=== PATIENT | male | born 1990 | race Caucasian/White ===

== ENCOUNTER 2019-04-08 19:41 | Inpatient (IN) | payer BC, OTHER ==
[2019-04-08] MEDS ORDERED: Sodium Chloride 0.9% 10 ML Syringe FLUSH PRN ×2 (20:03→22:44)
[2019-04-08] MEDS ORDERED: Sodium Chloride 0.9% 1,000 ML IV ONE (20:03)
[2019-04-08] MEDS ORDERED: Sodium Chloride 0.9% 2.5 ML Syringe FLUSH PRN ×2 (20:03→22:44)
--- NOTE | 2019-04-08 20:30 | EDM.PDOC ---
ED HPI GENERAL MEDICAL PROBLEM - General Chief Complaint: Abdominal Pain Stated Complaint: PAIN IN APENDIX Time Seen by Provider: 04/08/19 20:06 Source of Information: Reports: Patient History Limitations: Reports: No Limitations - History of Present Illness INITIAL COMMENTS - FREE TEXT/NARRATIVE: HISTORY AND PHYSICAL: History of present illness: Patient is a 28-year-old male presents to the ED with complaints of right lower abdominal pain. Patient states that the pain began this afternoon around 2 PM. He states he has had chills. He has had some nausea but denies any vomiting. He states that he has not had any diarrhea but he did have a bloody bowel movement this morning with bright red blood. He states this is not new to him and he always has blood in his stool. Review of systems: As per history of present illness and below otherwise all systems reviewed and negative. Past medical history: As per history of present illness and as reviewed below otherwise noncontributory. Surgical history: As per history of present illness and as reviewed below otherwise noncontributory. Social history: No reported history of drug or alcohol abuse. Family history: As per history of present illness and as reviewed below otherwise noncontributory. Physical exam: General: Patient sitting comfortably in no acute distress and nontoxic appearing HEENT: Atraumatic, normocephalic, pupils reactive, negative for conjunctival pallor or scleral icterus, mucous membranes moist, throat clear, neck supple, nontender, trachea midline. No meningeal signs. Lungs: Clear to auscultation, breath sounds equal bilaterally, chest nontender. Heart: S1S2, regular, negative for clicks, rubs, or overt murmur. Abdomen: Right lower quadrant tenderness to palpation nondistended. Negative for masses or hepatosplenomegaly. Negative for costovertebral tenderness. No rigidity, rebound, guarding. Pelvis: Stable nontender. Genitourinary: Deferred. Rectal: Deferred. Extremities: Atraumatic, negative for cords or calf pain. Neurovascular unremarkable. Neuro: Awake, alert, oriented. Cranial nerves II through XII unremarkable. Cerebellum unremarkable. Motor and sensory unremarkable throughout. Exam nonfocal. Notes: Discussed with Dr. Ramírez, she will evaluate patient in the ED. Diagnostics: CBC, CMP, CT abdomen pelvis with contrast, UA Therapeutics: 1L NS IV Declined pain medication Prescriptions: Impression: Acute appendicitis Plan: Patient admitted to Dr. Ramírez for appendectomy in the morning. Definitive disposition and diagnosis as appropriate pending reevaluation and review of above. RLQ Pain Score (Numeric/FACES): 7 - Related Data Allergies Allergy/AdvReac Type Severity Reaction Status Date / Time ciprofloxacin [From Cipro] Allergy Vomiting Verified 12/06/13 19:01 ciprofloxacin HCl Allergy Vomiting Verified 12/06/13 19:01 [From Cipro] pertussis vaccine,adsorbed Allergy Seizure Verified 12/06/13 19:01 [Pertussis Vaccine,Adsorbed] pertussis vaccine,fluid Allergy Seizure Verified 12/06/13 19:01 [Pertussis Vaccine,Fluid] Home Meds: Home Meds Buprenorphine HCl/Naloxone HCl [Suboxone 4 mg-1 mg Sl Film] 8 mg 04/08/19 [ History] Past Medical History - Past Health History Medical/Surgical History: Denies Medical/Surgical History - Infectious Disease History Infectious Disease History: Reports: Chicken Pox - Past Surgical History GI Surgical History: Reports: Hernia, Abdominal Social & Family History - Family History Family Medical History: Noncontributory - Tobacco Use Smoking Status *Q: Current Every Day Smoker Years of Tobacco use: 1 Packs/Tins Daily: 1 - Recreational Drug Use Recreational Drug Use: No ED ROS GENERAL - Review of Systems Review Of Systems: Comprehensive ROS is negative, except as noted in HPI. ED EXAM, GI/ABD - Physical Exam Exam: See Below (See dictation) Course - Vital Signs Last Recorded V/S: Last Vital Signs Temp 98.3 F 04/08/19 21:15 Pulse 94 04/08/19 22:22 Resp 18 04/08/19 22:22 BP 113/70 04/08/19 22:22 Pulse Ox 95 04/08/19 22:22 - Orders/Labs/Meds Orders: Active Orders 24 hr Category Date Time Status Sodium Chloride 0.9% [Saline Flush] Med 04/08/19 20:03 Active 10 ml FLUSH ASDIRECTED PRN Sodium Chloride 0.9% [Saline Flush] Med 04/08/19 20:03 Active 2.5 ml FLUSH ASDIRECTED PRN Saline Lock Insert [OM.PC] Stat Oth 04/08/19 20:03 Ordered Medication Orders Sodium Chloride (Saline Flush) 10 ml FLUSH ASDIRECTED PRN PRN Reason: Keep Vein Open Sodium Chloride (Saline Flush) 2.5 ml FLUSH ASDIRECTED PRN PRN Reason: Keep Vein Open Labs: Laboratory Tests 04/08/19 04/08/19 04/08/19 Range/Units 20:00 20:00 20:05 WBC 21.41 H (4.0-11.0) K/uL RBC 5.15 (4.50-5.90) M/uL Hgb 15.0 (13.0-17.0) g/dL Hct 43.2 (38.0-50.0) % MCV 83.9 (80.0-98.0) fL MCH 29.1 (27.0-32.0) pg MCHC 34.7 (31.0-37.0) g/dL RDW Std Deviation 38.5 (28.0-62.0) fl RDW Coeff of Dayanna 13 (11.0-15.0) % Plt Count 307 (150-400) K/uL MPV 9.60 (7.40-12.00) fL Neut % (Auto) 72.6 (48.0-80.0) % Lymph % (Auto) 16.8 (16.0-40.0) % [place] % (Auto) 9.8 (0.0-15.0) % Eos % (Auto) 0.6 (0.0-7.0) % Baso % (Auto) 0.2 (0.0-1.5) % Neut # (Auto) 15.5 H (1.4-5.7) K/uL Lymph # (Auto) 3.6 H (0.6-2.4) K/uL [place] # (Auto) 2.1 H (0.0-0.8) K/uL Eos # (Auto) 0.1 (0.0-0.7) K/uL Baso # (Auto) 0.1 (0.0-0.1) K/uL Nucleated RBC % 0.0 /100WBC Nucleated RBCs # 0 K/uL Sodium 140 (136-148) mmol/L Potassium 4.3 (3.5-5.1) mmol/L Chloride 103 (98-107) mmol/L Carbon Dioxide 30.4 (21.0-32.0) mmol/L BUN 15 (7.0-18.0) mg/dL Creatinine 1.0 (0.8-1.3) mg/dL Est Cr Clr Drug Dosing 118.18 mL/min Estimated GFR (MDRD) > 60.0 ml/min Glucose 102 (74-106) mg/dL Calcium 9.0 (8.5-10.1) mg/dL Total Bilirubin 0.5 (0.2-1.0) mg/dL AST 33 (15-37) IU/L ALT 79 H (14-63) IU/L Alkaline Phosphatase 90 (46-116) U/L Total Protein 7.9 (6.4-8.2) g/dL Albumin 4.2 (3.4-5.0) g/dL Globulin 3.7 (2.6-4.0) g/dL Albumin/Globulin Ratio 1.1 (0.9-1.6) Urine Color YELLOW Urine Appearance HAZY Urine pH 6.5 (5.0-8.0) Ur Specific [place] 1.020 (1.001-1.035) Urine Protein NEGATIVE (NEGATIVE) mg/dL Urine Glucose (UA) NEGATIVE (NEGATIVE) mg/dL Urine Ketones NEGATIVE (NEGATIVE) mg/dL Urine Occult Blood LARGE H (NEGATIVE) Urine Nitrite NEGATIVE (NEGATIVE) Urine Bilirubin NEGATIVE (NEGATIVE) Urine Urobilinogen 2.0 H (<2.0) EU/dL Ur Leukocyte Esterase NEGATIVE (NEGATIVE) Urine RBC 8-14 (0-2/HPF) Urine WBC 0-2 (0-5/HPF) Ur Epithelial Cells RARE (NONE-FEW) Urine Bacteria RARE (NEGATIVE) Meds: Medications Generic Name Dose Route Start Last Admin Trade Name Isreal PRN Reason Stop Dose Admin Sodium Chloride 10 ml 04/08/19 20:03 Saline Flush FLUSH ASDIRECTED PRN Keep Vein Open Sodium Chloride 2.5 ml 04/08/19 20:03 Saline Flush FLUSH ASDIRECTED PRN Keep Vein Open Discontinued Medications Generic Name Dose Route Start Last Admin Trade Name Isreal PRN Reason Stop Dose Admin Sodium Chloride 1,000 mls @ 999 mls/hr 04/08/19 20:03 04/08/19 20:14 Normal Saline IV 04/08/19 21:03 999 mls/hr STAT ONE Administration Iopamidol 100 ml 04/08/19 21:04 04/08/19 21:05 Isovue-370 (76%) IVPUSH 04/08/19 21:05 100 ml ONETIME ONE Administration Departure - Departure Time of Disposition: 22:26 Disposition: Refer to Observation Condition: Good Clinical Impression: Acute appendicitis - Discharge Information Referrals: PCP,None [Primary Care Provider] - Forms: ED Department Discharge Sepsis Event Note - Evaluation Sepsis Screening Result: No Definite Risk - Focused Exam Vital Signs: Vital Signs Temp Pulse Resp BP Pulse Ox 04/08/19 22:22 94 18 113/70 95 04/08/19 21:15 98.3 F 94 18 121/72 96 04/08/19 19:45 98.7 F 123 H 16 114/74 95 Date Exam was Performed: 04/08/19 Time Exam was Performed: 22:25 - My Orders Last 24 Hours: My Active Orders 04/08/19 20:03 Sodium Chloride 0.9% [Saline Flush] 10 ml FLUSH ASDIRECTED PRN Sodium Chloride 0.9% [Saline Flush] 2.5 ml FLUSH ASDIRECTED PRN Saline Lock Insert [OM.PC] Stat - Assessment/Plan Last 24 Hours: My Active Orders 04/08/19 20:03 Sodium Chloride 0.9% [Saline Flush] 10 ml FLUSH ASDIRECTED PRN Sodium Chloride 0.9% [Saline Flush] 2.5 ml FLUSH ASDIRECTED PRN Saline Lock Insert [OM.PC] Stat
[2019-04-08 20:42] LABS: BLOOD UREA NITROGEN,BUN 15 mg/dL (7.0-18.0); CARBON DIOXIDE,CO2 30.4 mmol/L (21.0-32.0); CHLORIDE,CL 103 mmol/L (98-107); GLUCOSE RANDOM 102 mg/dL (74-106); POTASSIUM,K 4.3 mmol/L (3.5-5.1); SODIUM,NA 140 mmol/L (136-148)
[2019-04-08] MEDS ORDERED: Iopamidol 755 Mg/ML 100 ML Bottle IVPUSH ONE (21:04)
--- NOTE | 2019-04-08 21:16 | CT ---
INDICATION: Right lower quadrant pain. TECHNIQUE: Volumetric helical scanning of the abdomen and pelvis was performed with 100 cc of Isovue 370 contrast material IV. Coronal and sagittal reconstructions were obtained. COMPARISON: None. FINDINGS: The appendix measures 8 mm in diameter and is fluid filled. Stranding in the periappendiceal fat is noted as well as a small amount of periappendiceal fluid and small amount of fluid in the posterior pelvis. No free air is evident. The liver is normal in size, shape and attenuation. No bile duct dilation is evident. The spleen is within normal limits. The adrenal glands are unremarkable. The pancreas is within normal limits. The kidneys are unremarkable except for a small right renal parenchymal cyst. No lymphadenopathy is evident. The prostate is unremarkable. The lung bases are clear. The heart is normal in size. IMPRESSION: 1. Suspicious for early acute appendicitis. Though the appendix measures only 8 mm in diameter, it is fluid-filled and there is stranding in the periappendiceal fat as well as a small amount of periappendiceal fluid. 2. Small right renal cyst. Please note that all CT scans at this facility use dose modulation, iterative reconstruction, and/or weight-based dosing when appropriate to reduce radiation dose to as low as reasonably achievable. Dictated by Bryan Knight MD @ Apr 08 2019 9:09PM Signed by Dr. Bryan Knight @ Apr 08 2019 9:16PM
--- NOTE | 2019-04-08 22:40 | PCM.HP.2 ---
H&P History of Present Illness - General Date of Service: 04/08/19 Source of Information: Patient History Limitations: Reports: No Limitations - History of Present Illness Initial Comments - Free Text/Narative: Patient is a 28 year old male who presents with an acute onset of lower abdominal pain. He has never had pain like this before. It was associated with chills. He denied fevers, nausea, vomiting, diarrhea. He presented to the ER when the pain persisted. He was tachycardic on arrival. He responded to fluids. His BP was normal. His WBC was elevated at 21K. He underwent a CT scan that showed very early appendicitis. RLQ Pain Score (Numeric/FACES): 7 - Related Data Allergies/Adverse Reactions: Allergies Allergy/AdvReac Type Severity Reaction Status Date / Time ciprofloxacin [From Cipro] Allergy Vomiting Verified 12/06/13 19:01 ciprofloxacin HCl Allergy Vomiting Verified 12/06/13 19:01 [From Cipro] pertussis vaccine,adsorbed Allergy Seizure Verified 12/06/13 19:01 [Pertussis Vaccine,Adsorbed] pertussis vaccine,fluid Allergy Seizure Verified 12/06/13 19:01 [Pertussis Vaccine,Fluid] Home Medications: Home Meds Buprenorphine HCl/Naloxone HCl [Suboxone 4 mg-1 mg Sl Film] 8 mg 04/08/19 [ History] Past Medical History - Past Health History Medical/Surgical History: Denies Medical/Surgical History - Infectious Disease History Infectious Disease History: Reports: Chicken Pox - Past Surgical History Other HEENT Surgeries/Procedures: "Jaw wired shut", "plastic surgery to face" GI Surgical History: Reports: Hernia, Abdominal Social & Family History - Family History Family Medical History: Noncontributory - Tobacco Use Smoking Status *Q: Current Every Day Smoker Years of Tobacco use: 1 Packs/Tins Daily: 1 - Recreational Drug Use Recreational Drug Use: No H&P Review of Systems - Review of Systems: Review Of Systems: Comprehensive ROS is negative, except as noted in HPI. Exam - Exam Exam: See Below - Vital Signs Vital Signs: Last Vital Signs Temp 36.8 C 04/08/19 21:15 Pulse 94 04/08/19 22:22 Resp 18 04/08/19 22:22 BP 113/70 04/08/19 22:22 Pulse Ox 95 04/08/19 22:22 Weight: 99.79 kg - Exam General: Alert, Oriented HEENT: Conjunctiva Clear, Mucosa Moist & [place], Posterior Pharynx Clear Lungs: Clear to Auscultation, Normal Respiratory Effort Cardiovascular: Regular Rate, Regular Rhythm GI/Abdominal Exam: Soft, No Distention, No Mass, Tender (RLQ). No: Guarding, Rigid, Rebound Back Exam: Normal Inspection, Full Range of Motion Extremities: Normal Inspection, Normal Range of Motion - Patient Data Lab Results Last 24 hrs: Laboratory Results - last 24 hr 04/08/19 04/08/19 04/08/19 Range/Units 20:00 20:00 20:05 WBC 21.41 H (4.0-11.0) K/uL RBC 5.15 (4.50-5.90) M/uL Hgb 15.0 (13.0-17.0) g/dL Hct 43.2 (38.0-50.0) % MCV 83.9 (80.0-98.0) fL MCH 29.1 (27.0-32.0) pg MCHC 34.7 (31.0-37.0) g/dL RDW Std Deviation 38.5 (28.0-62.0) fl RDW Coeff of Dayanna 13 (11.0-15.0) % Plt Count 307 (150-400) K/uL MPV 9.60 (7.40-12.00) fL Neut % (Auto) 72.6 (48.0-80.0) % Lymph % (Auto) 16.8 (16.0-40.0) % [place] % (Auto) 9.8 (0.0-15.0) % Eos % (Auto) 0.6 (0.0-7.0) % Baso % (Auto) 0.2 (0.0-1.5) % Neut # (Auto) 15.5 H (1.4-5.7) K/uL Lymph # (Auto) 3.6 H (0.6-2.4) K/uL [place] # (Auto) 2.1 H (0.0-0.8) K/uL Eos # (Auto) 0.1 (0.0-0.7) K/uL Baso # (Auto) 0.1 (0.0-0.1) K/uL Nucleated RBC % 0.0 /100WBC Nucleated RBCs # 0 K/uL Sodium 140 (136-148) mmol/L Potassium 4.3 (3.5-5.1) mmol/L Chloride 103 (98-107) mmol/L Carbon Dioxide 30.4 (21.0-32.0) mmol/L BUN 15 (7.0-18.0) mg/dL Creatinine 1.0 (0.8-1.3) mg/dL Est Cr Clr Drug Dosing 118.18 mL/min Estimated GFR (MDRD) > 60.0 ml/min Glucose 102 (74-106) mg/dL Calcium 9.0 (8.5-10.1) mg/dL Total Bilirubin 0.5 (0.2-1.0) mg/dL AST 33 (15-37) IU/L ALT 79 H (14-63) IU/L Alkaline Phosphatase 90 (46-116) U/L Total Protein 7.9 (6.4-8.2) g/dL Albumin 4.2 (3.4-5.0) g/dL Globulin 3.7 (2.6-4.0) g/dL Albumin/Globulin Ratio 1.1 (0.9-1.6) Urine Color YELLOW Urine Appearance HAZY Urine pH 6.5 (5.0-8.0) Ur Specific [place] 1.020 (1.001-1.035) Urine Protein NEGATIVE (NEGATIVE) mg/dL Urine Glucose (UA) NEGATIVE (NEGATIVE) mg/dL Urine Ketones NEGATIVE (NEGATIVE) mg/dL Urine Occult Blood LARGE H (NEGATIVE) Urine Nitrite NEGATIVE (NEGATIVE) Urine Bilirubin NEGATIVE (NEGATIVE) Urine Urobilinogen 2.0 H (<2.0) EU/dL Ur Leukocyte Esterase NEGATIVE (NEGATIVE) Urine RBC 8-14 (0-2/HPF) Urine WBC 0-2 (0-5/HPF) Ur Epithelial Cells RARE (NONE-FEW) Urine Bacteria RARE (NEGATIVE) Result Diagrams: 04/08/19 20:00 04/08/19 20:00 Sepsis Event Note - Evaluation Sepsis Screening Result: No Definite Risk - Focused Exam Vital Signs: Vital Signs Temp Pulse Resp BP Pulse Ox 04/08/19 22:22 94 18 113/70 95 04/08/19 21:15 36.8 C 94 18 121/72 96 04/08/19 19:45 37.1 C 123 H 16 114/74 95 Date Exam was Performed: 04/08/19 Time Exam was Performed: 22:34 - Problem List (1) Acute appendicitis SNOMED Code(s): 57642338 ICD Code: K35.80 - UNSPECIFIED ACUTE APPENDICITIS Status: Acute Current Visit: Yes Problem List Initiated/Reviewed/Updated: Yes Orders Last 24hrs: Active Orders 24 hr Category Date Time Status Sodium Chloride 0.9% [Saline Flush] Med 04/08/19 20:03 Active 10 ml FLUSH ASDIRECTED PRN Sodium Chloride 0.9% [Saline Flush] Med 04/08/19 20:03 Active 2.5 ml FLUSH ASDIRECTED PRN Saline Lock Insert [OM.PC] Stat Oth 04/08/19 20:03 Ordered Medication Orders Sodium Chloride (Saline Flush) 10 ml FLUSH ASDIRECTED PRN PRN Reason: Keep Vein Open Sodium Chloride (Saline Flush) 2.5 ml FLUSH ASDIRECTED PRN PRN Reason: Keep Vein Open Assessment/Plan Comment:: -Pain: Dilaudid 0.5 mg IV q 1hr prn pain -CV: Resuscitate overnight with IVF. Monitor vitals q 4hr. -Pulm: IS -GI: npo except ice chips and sips with chips -Renal: BUN/Cr normal. IVF 150ml/hr LR -ID: zosyn IV q 6hr -Heme: Stable -Px: SCDs Surgery in am
[2019-04-08] MEDS ORDERED: HYDROmorphone 1 MG/ML Syringe IVPUSH PRN (22:44)
[2019-04-08] MEDS ORDERED: Sodium Chloride 0.9% 10 ML SDV IV PRN (22:44)
[2019-04-08] MEDS: Lactated Ringers 1,000 ML IV SCH (22:52)
[2019-04-08] MEDS: Piperacillin/Tazobactam 3.375 GM in Sodium Chloride 0.9% 50 ML IV SCH (23:05)
[2019-04-09] MEDS: Piperacillin/Tazobactam 3.375 GM in Sodium Chloride 0.9% 50 ML IV SCH ×2 (04:45→11:15)
[2019-04-09] MEDS ORDERED: Propofol 200 MG/20 ML SDV ONE (07:10)
[2019-04-09] MEDS ORDERED: Midazolam 1 MG/ML 2 ML SDV ONE (07:10)
[2019-04-09] MEDS ORDERED: Lidocaine 2% 5 ML SDV ONE (07:10)
[2019-04-09] MEDS ORDERED: fentaNYL 250 MCG/5 ML SDV ONE (07:10)
[2019-04-09] MEDS ORDERED: Ondansetron 4 MG/2 ML SDV ONE (07:10)
[2019-04-09] MEDS ORDERED: Rocuronium 100 MG/10 ML Syringe ONE (07:11)
[2019-04-09] MEDS ORDERED: Ketamine 500 mg/10 ML MDV ONE (07:11)
[2019-04-09] MEDS ORDERED: Bupivacaine 0.5% 30 ML SDV ONE (07:27)
[2019-04-09] MEDS ORDERED: Desflurane 240 ML Bottle ONE (07:28)
--- NOTE | 2019-04-09 07:33 | PCM.PREANE ---
Preanesthetic Assessment - Anesthesia/Transfusion/Family Hx Anesthesia History: Prior Anesthesia Without Reaction (slow to wake-up) Family History of Anesthesia Reaction: No Intubation History: Unknown - Review of Systems General: No Symptoms Pulmonary: No Symptoms Cardiovascular: No Symptoms Gastrointestinal: No Symptoms Neurological: No Symptoms Other: Reports: None - Physical Assessment Vital Signs: Last Vital Signs Temp 36.6 C 04/09/19 04:00 Pulse 77 04/09/19 04:00 Resp 15 04/09/19 04:00 BP 95/51 L 04/09/19 04:00 Pulse Ox 94 L 04/09/19 04:00 Height: 5 ft 11 in Weight: 105.4 kg ASA Class: 2 Mental Status: Alert & Oriented x3 Airway Class: Mallampati = 2 Dentition: Reports: Normal Dentition Thyro-Mental Finger Breadths: 3 Mouth Opening Finger Breadths: 3 ROM/Head Extension: Full Lungs: Clear to Auscultation, Normal Respiratory Effort Cardiovascular: Regular Rate, Regular Rhythm - Lab Values: Laboratory Last Values WBC 21.41 K/uL (4.0-11.0) H 04/08/19 20:00 RBC 5.15 M/uL (4.50-5.90) 04/08/19 20:00 Hgb 15.0 g/dL (13.0-17.0) 04/08/19 20:00 Hct 43.2 % (38.0-50.0) 04/08/19 20:00 MCV 83.9 fL (80.0-98.0) 04/08/19 20:00 MCH 29.1 pg (27.0-32.0) 04/08/19 20: MCHC 34.7 g/dL (31.0-37.0) 04/08/19 20:00 RDW Std Deviation 38.5 fl (28.0-62.0) 04/08/19 20:00 RDW Coeff of Dayanna 13 % (11.0-15.0) 04/08/19 20: Plt Count 307 K/uL (150-400) 04/08/19 20:00 MPV 9.60 fL (7.40-12.00) 04/08/19 20:00 Neut % (Auto) 72.6 % (48.0-80.0) 04/08/19 20:00 Lymph % (Auto) 16.8 % (16.0-40.0) 04/08/19 20:00 [place] % (Auto) 9.8 % (0.0-15.0) 04/08/19 20:00 Eos % (Auto) 0.6 % (0.0-7.0) 04/08/19 20:00 Baso % (Auto) 0.2 % (0.0-1.5) 04/08/19 20:00 Neut # (Auto) 15.5 K/uL (1.4-5.7) H 04/08/19 20:00 Lymph # (Auto) 3.6 K/uL (0.6-2.4) H 04/08/19 20:00 [place] # (Auto) 2.1 K/uL (0.0-0.8) H 04/08/19 20:00 Eos # (Auto) 0.1 K/uL (0.0-0.7) 04/08/19 20:00 Baso # (Auto) 0.1 K/uL (0.0-0.1) 04/08/19 20:00 Nucleated RBC % 0.0 /100WBC 04/08/19 20:00 Nucleated RBCs # 0 K/uL 04/08/19 20:00 Sodium 140 mmol/L (136-148) 04/08/19 20:00 Potassium 4.3 mmol/L (3.5-5.1) 04/08/19 20:00 Chloride 103 mmol/L (98-107) 04/08/19 20:00 Carbon Dioxide 30.4 mmol/L (21.0-32.0) 04/08/19 20:00 BUN 15 mg/dL (7.0-18.0) 04/08/19 20:00 Creatinine 1.0 mg/dL (0.8-1.3) 04/08/19 20:00 Est Cr Clr Drug Dosing 118.18 mL/min 04/08/19 20:00 Estimated GFR (MDRD) > 60.0 ml/min 04/08/19 20:00 Glucose 102 mg/dL (74-106) 04/08/19 20:00 Calcium 9.0 mg/dL (8.5-10.1) 04/08/19 20:00 Total Bilirubin 0.5 mg/dL (0.2-1.0) 04/08/19 20:00 AST 33 IU/L (15-37) 04/08/19 20:00 ALT 79 IU/L (14-63) H 04/08/19 20:00 Alkaline Phosphatase 90 U/L (46-116) 04/08/19 20:00 Total Protein 7.9 g/dL (6.4-8.2) 04/08/19 20:00 Albumin 4.2 g/dL (3.4-5.0) 04/08/19 20:00 Globulin 3.7 g/dL (2.6-4.0) 04/08/19 20:00 Albumin/Globulin Ratio 1.1 (0.9-1.6) 04/08/19 20: Urine Color YELLOW 04/08/19 20:05 Urine Appearance HAZY 04/08/19 20: Urine pH 6.5 (5.0-8.0) 04/08/19 20:05 Ur Specific [place] 1.020 (1.001-1.035) 04/08/19 20:05 Urine Protein NEGATIVE mg/dL (NEGATIVE) 04/08/19 20:05 Urine Glucose (UA) NEGATIVE mg/dL (NEGATIVE) 04/08/19 20:05 Urine Ketones NEGATIVE mg/dL (NEGATIVE) 04/08/19 20: Urine Occult Blood LARGE (NEGATIVE) H 04/08/19 20:05 Urine Nitrite NEGATIVE (NEGATIVE) 04/08/19 20:05 Urine Bilirubin NEGATIVE (NEGATIVE) 04/08/19 20: Urine Urobilinogen 2.0 EU/dL (<2.0) H 04/08/19 20:05 Ur Leukocyte Esterase NEGATIVE (NEGATIVE) 04/08/19 20:05 Urine RBC 8-14 (0-2/HPF) 04/08/19 20:05 Urine WBC 0-2 (0-5/HPF) 04/08/19 20:05 Ur Epithelial Cells RARE (NONE-FEW) 04/08/19 20:05 Urine Bacteria RARE (NEGATIVE) 04/08/19 20:05 - Allergies Allergies/Adverse Reactions: Allergies Allergy/AdvReac Type Severity Reaction Status Date / Time ciprofloxacin [From Cipro] Allergy Vomiting Verified 04/09/19 00:41 ciprofloxacin HCl Allergy Vomiting Verified 04/09/19 00:41 [From Cipro] pertussis vaccine,adsorbed Allergy Seizure Verified 04/09/19 00:41 [Pertussis Vaccine,Adsorbed] pertussis vaccine,fluid Allergy Seizure Verified 04/09/19 00:41 [Pertussis Vaccine,Fluid] - Blood Blood Available: No - Anesthesia Plan Pre-Op Medication Ordered: None - Acknowledgements Anesthesia Type Planned: General Anesthesia Pt an Appropriate Candidate for the Planned Anesthesia: Yes Alternatives and Risks of Anesthesia Discussed w Pt/Guardian: Yes Pt/Guardian Understands and Agrees with Anesthesia Plan: Yes PreAnesthesia Questionnaire - Past Health History Medical/Surgical History: Denies Medical/Surgical History Genitourinary History: Reports: Renal Calculus, Other (See Below) Other Genitourinary History: chronic hematuria since childhood Endocrine/Metabolic History: Reports: Obesity/BMI 30+ - Infectious Disease History Infectious Disease History: Reports: Chicken Pox - Past Surgical History Other HEENT Surgeries/Procedures: "Jaw wired shut", "plastic surgery to face" GI Surgical History: Reports: Hernia, Abdominal - SUBSTANCE USE Smoking Status *Q: Current Some Day Smoker Tobacco Use Within Last Twelve Months: Vaping Recreational Drug Use History: No Recreational Drug Type: Reports: Other (see below) (h/o pain pill addiction - on cyboxine) - HOME MEDS Home Medications: Home Meds Buprenorphine HCl/Naloxone HCl [Suboxone 4 mg-1 mg Sl Film] 8 mg PO DAILY [History] - CURRENT (IN HOUSE) MEDS Current Meds: Current Medications Hydromorphone HCl (Dilaudid) 0.5 mg IVPUSH Q1H PRN PRN Reason: Abdominal Pain Last Admin: 04/08/19 23:03 Dose: 0.5 mg Lactated Ringer's (Ringers, Lactated) 1,000 mls @ 150 mls/hr IV ASDIRECTED KIKI Last Admin: 04/08/19 22:52 Dose: 150 mls/hr Piperacillin Sod/Tazobactam (Sod 3.375 gm/ Sodium Chloride) 50 mls @ 100 mls/ hr IV Q6H KIKI Last Admin: 04/09/19 04:45 Dose: 100 mls/hr Sodium Chloride (Saline Flush) 10 ml FLUSH ASDIRECTED PRN PRN Reason: Keep Vein Open Sodium Chloride (Saline Flush) 2.5 ml FLUSH ASDIRECTED PRN PRN Reason: Keep Vein Open Sodium Chloride (Normal Saline) 10 ml IV ASDIRECTED PRN PRN Reason: IV Use Discontinued Medications Bupivacaine HCl (Marcaine 0.5%) Confirm Administered Dose 30 ml .ROUTE .STK-MED ONE Stop: 04/09/19 07:28 Desflurane (Suprane) Confirm Administered Dose 480 ml .ROUTE .STK-MED ONE Stop: 04/09/19 07:29 Fentanyl (Sublimaze) Confirm Administered Dose 250 mcg .ROUTE .STK-MED ONE Stop: 04/09/19 07:11 Sodium Chloride (Normal Saline) 1,000 mls @ 999 mls/hr IV STAT ONE Stop: 04/08/19 21:03 Last Admin: 04/08/19 20:14 Dose: 999 mls/hr Iopamidol (Isovue-370 (76%)) 100 ml IVPUSH ONETIME ONE Stop: 04/08/19 21:05 Last Admin: 04/08/19 21:05 Dose: 100 ml Ketamine HCl (Ketalar) Confirm Administered Dose 500 mg .ROUTE .STK-MED ONE Stop: 04/09/19 07:12 Lidocaine (Xylocaine-Mpf 2%) Confirm Administered Dose 5 ml .ROUTE .STK-MED ONE Stop: 04/09/19 07:11 Midazolam HCl (Versed 1 Mg/Ml) Confirm Administered Dose 2 mg .ROUTE .STK-MED ONE Stop: 04/09/19 07:11 Ondansetron HCl (Zofran) Confirm Administered Dose 4 mg .ROUTE .STK-MED ONE Stop: 04/09/19 07:11 Propofol (Diprivan 20 Ml) Confirm Administered Dose 200 mg .ROUTE .STK-MED ONE Stop: 04/09/19 07:11 Rocuronium [place] (Zemuron) Confirm Administered Dose 100 mg .ROUTE .STK-MED ONE Stop: 04/09/19 07:12 Sodium Chloride (Saline Flush) 10 ml FLUSH ASDIRECTED PRN PRN Reason: Keep Vein Open Sodium Chloride (Saline Flush) 2.5 ml FLUSH ASDIRECTED PRN PRN Reason: Keep Vein Open Succinylcholine Chloride (Succinylcholine Chloride) Confirm Administered Dose 200 mg .ROUTE .STK-MED ONE Stop: 04/09/19 07:12
[2019-04-09] MEDS ORDERED: Scopolamine 1.5 MG Transdermal Patch ONE (08:05)
[2019-04-09] MEDS ORDERED: Glycopyrrolate 0.2 MG/ML SDV ONE (08:43)
[2019-04-09] MEDS ORDERED: Naloxone 0.4 MG/ML Syringe IVPUSH PRN (08:48)
[2019-04-09] MEDS ORDERED: Albuterol 0.083% 2.5 MG/3 ML Neb Soln NEB PRN (08:48)
[2019-04-09] MEDS ORDERED: 50% Dextrose in Water 50 ML Syringe IVPUSH PRN (08:48)
[2019-04-09] MEDS ORDERED: fentaNYL 100 MCG/2 ML SDV IVPUSH PRN (08:48)
[2019-04-09] MEDS ORDERED: EPINEPHrine 1:10,000 1 MG/10 ML Syringe IVPUSH PRN (08:48)
[2019-04-09] MEDS ORDERED: Atropine 0.1 MG/ML 10 ML Syringe IVPUSH PRN ×2 (08:48)
[2019-04-09] MEDS ORDERED: HYDROmorphone 2 MG/ML Syringe ONE (09:12)
[2019-04-09] MEDS ORDERED: Meperidine PF 25 MG/ML Syringe ONE (09:20)
--- NOTE | 2019-04-09 09:33 | PCM.SN ---
- Free Text/Narrative Note: Patient has a history of taking suboxone. Given that this can make it difficult to control pain post-operatively and puts him at increased risk of a respiratory compromise, will admit to ICU for close monitoring for the next 24 hours. Will restart suboxone today. Will give dilaudid 1mg q 1hr to start to control pain. Will schedule Tylenol and Toradol as this is what I hope to transition him to for discharge.
--- NOTE | 2019-04-09 09:42 | PCM.OPNOTE ---
- General Post-Op/Procedure Note Date of Surgery/Procedure: 04/09/19 Operative Procedure(s): Laparoscopic appendectomy Findings: Acutely inflamed and enlarged appendix with no evidence of perforation Pre Op Diagnosis: Appendicitis Post-Op Diagnosis: same Anesthesia Technique: MAC Primary Surgeon: Yancy Ramírez Pathology: appendix Output, Urine Amount: 50 EBL in mLs: 1,400 Condition: Fair
[2019-04-09] MEDS ORDERED: Acetaminophen 325 MG Tab PO SCH (09:45)
[2019-04-09] MEDS ORDERED: Ketorolac 30 MG/ML SDV IVPUSH SCH (09:45)
--- NOTE | 2019-04-09 10:36 | PCM.POSTAN ---
POST ANESTHESIA ASSESSMENT - MENTAL STATUS Mental Status: Alert, Oriented - VITAL SIGNS Vital Signs: Last Vital Signs Temp 37.1 C 04/09/19 09:24 Pulse 93 04/09/19 10:30 Resp 10 L 04/09/19 10:30 BP 101/58 L 04/09/19 10:30 Pulse Ox 94 L 04/09/19 10:30 - RESPIRATORY Respiratory Status: Respiratory Rate WNL, Airway Patent, O2 Saturation Stable - CARDIOVASCULAR CV Status: Pulse Rate WNL, Blood Pressure Stable - GASTROINTESTINAL GI Status: No Symptoms - PAIN Pain Score: 0 - POST OP HYDRATION Hydration Status: Adequate & Stable - OBSERVATIONS Free Text/Narrative:: No anesthesia problems
[2019-04-09] MEDS: Lactated Ringers 1,000 ML IV SCH ×2 (10:50→15:42)
[2019-04-09] MEDS: Acetaminophen 325 MG Tab PO SCH ×2 (13:00→17:44)
--- NOTE | 2019-04-09 14:37 | PCM.SURGPN ---
- General Info Date of Service: 04/09/19 Date of Surgery/Procedure: 04/09/19 POD#: 0 Functional Status: Reports: Pain Controlled, Other (Patient has had soft BP since arrival to ICU. HR within normal limits. Respiratory rate 8-10 while sleeping and O2 sats in high 80s. On 1 L NC and easily rousable. Awake alert and oriented but easily going to sleep. No UOP since case. Bladder scanned for 700. Refused straight cath. Wants to sit up and try to pee. He is feeling better overall. No narcotics since PACU. On scheduled toradol, tylenol. Talked to mother who states that scheduled naproxen has helped in the past as well. ) - Review of Systems General: Reports: No Symptoms HEENT: Reports: No Symptoms Pulmonary: Reports: No Symptoms Cardiovascular: Reports: No Symptoms Gastrointestinal: Reports: No Symptoms Genitourinary: Reports: Retention - Patient Data Vitals - Most Recent: Last Vital Signs Temp 36.8 C 04/09/19 11:45 Pulse 93 04/09/19 10:30 Resp 10 L 04/09/19 11:45 BP 96/48 L 04/09/19 11:45 Pulse Ox 94 L 04/09/19 11:45 Weight - Most Recent: 105.4 kg I&O - Last 24 Hours: Intake & Output 04/08/19 04/09/19 04/09/19 22:59 06:59 14:59 Intake Total 1900 Output Total 100 Balance 1800 Lab Results Last 24 Hrs: Laboratory Results - last 24 hr 04/08/19 04/08/19 04/08/19 Range/Units 20:00 20:00 20:05 WBC 21.41 H (4.0-11.0) K/uL RBC 5.15 (4.50-5.90) M/uL Hgb 15.0 (13.0-17.0) g/dL Hct 43.2 (38.0-50.0) % MCV 83.9 (80.0-98.0) fL MCH 29.1 (27.0-32.0) pg MCHC 34.7 (31.0-37.0) g/dL RDW Std Deviation 38.5 (28.0-62.0) fl RDW Coeff of Dayanna 13 (11.0-15.0) % Plt Count 307 (150-400) K/uL MPV 9.60 (7.40-12.00) fL Neut % (Auto) 72.6 (48.0-80.0) % Lymph % (Auto) 16.8 (16.0-40.0) % [place] % (Auto) 9.8 (0.0-15.0) % Eos % (Auto) 0.6 (0.0-7.0) % Baso % (Auto) 0.2 (0.0-1.5) % Neut # (Auto) 15.5 H (1.4-5.7) K/uL Lymph # (Auto) 3.6 H (0.6-2.4) K/uL [place] # (Auto) 2.1 H (0.0-0.8) K/uL Eos # (Auto) 0.1 (0.0-0.7) K/uL Baso # (Auto) 0.1 (0.0-0.1) K/uL Nucleated RBC % 0.0 /100WBC Nucleated RBCs # 0 K/uL Sodium 140 (136-148) mmol/L Potassium 4.3 (3.5-5.1) mmol/L Chloride 103 (98-107) mmol/L Carbon Dioxide 30.4 (21.0-32.0) mmol/L BUN 15 (7.0-18.0) mg/dL Creatinine 1.0 (0.8-1.3) mg/dL Est Cr Clr Drug Dosing 118.18 mL/min Estimated GFR (MDRD) > 60.0 ml/min Glucose 102 (74-106) mg/dL Calcium 9.0 (8.5-10.1) mg/dL Total Bilirubin 0.5 (0.2-1.0) mg/dL AST 33 (15-37) IU/L ALT 79 H (14-63) IU/L Alkaline Phosphatase 90 (46-116) U/L Total Protein 7.9 (6.4-8.2) g/dL Albumin 4.2 (3.4-5.0) g/dL Globulin 3.7 (2.6-4.0) g/dL Albumin/Globulin Ratio 1.1 (0.9-1.6) Urine Color YELLOW Urine Appearance HAZY Urine pH 6.5 (5.0-8.0) Ur Specific [place] 1.020 (1.001-1.035) Urine Protein NEGATIVE (NEGATIVE) mg/dL Urine Glucose (UA) NEGATIVE (NEGATIVE) mg/dL Urine Ketones NEGATIVE (NEGATIVE) mg/dL Urine Occult Blood LARGE H (NEGATIVE) Urine Nitrite NEGATIVE (NEGATIVE) Urine Bilirubin NEGATIVE (NEGATIVE) Urine Urobilinogen 2.0 H (<2.0) EU/dL Ur Leukocyte Esterase NEGATIVE (NEGATIVE) Urine RBC 8-14 (0-2/HPF) Urine WBC 0-2 (0-5/HPF) Ur Epithelial Cells RARE (NONE-FEW) Urine Bacteria RARE (NEGATIVE) Med Orders - Current: Current Medications Acetaminophen (Tylenol) 650 mg PO Q6H KIKI Albuterol (Proventil Neb Soln) 2.5 mg NEB ONETIME PRN PRN Reason: Wheezing Atropine Sulfate (Atropine 0.1 Mg/Ml) 0.5 mg IVPUSH ASDIRECTED PRN PRN Reason: Hypo-perfusion Atropine Sulfate (Atropine 0.1 Mg/Ml) 1 mg IVPUSH ASDIRECTED PRN PRN Reason: Hypo-Perfusion Dextrose/Water (Dextrose 50% In Water) 50 ml IVPUSH ASDIRECTED PRN PRN Reason: Hypoglycemia Epinephrine HCl (Epinephrine 1:10,000) 1 mg IVPUSH ASDIRECTED PRN PRN Reason: ACLS Guidelines Fentanyl (Sublimaze) 50 - 100 mcg IVPUSH Q5M PRN PRN Reason: Pain Hydromorphone HCl (Dilaudid) 1 mg IVPUSH Q1H PRN PRN Reason: Abdominal Pain Lactated Ringer's (Ringers, Lactated) 1,000 mls @ 150 mls/hr IV ASDIRECTED [facility] Last Admin: 04/09/19 10:50 Dose: 150 mls/hr Ketorolac Tromethamine (Toradol) 30 mg IVPUSH Q6H [facility] Stop: 04/14/19 09:34 Last Admin: 04/09/19 11:14 Dose: 30 mg Naloxone HCl (Narcan) 0.1 mg IVPUSH ASDIRECTED PRN PRN Reason: Respiratory Depression Naproxen (Naprosyn) 500 mg PO Q12HR [facility] Buprenorphine 8 Mg (Tablet) 0 each .XX QID [facility] Sodium Chloride (Saline Flush) 10 ml FLUSH ASDIRECTED PRN PRN Reason: Keep Vein Open Sodium Chloride (Saline Flush) 2.5 ml FLUSH ASDIRECTED PRN PRN Reason: Keep Vein Open Sodium Chloride (Normal Saline) 10 ml IV ASDIRECTED PRN PRN Reason: IV Use Discontinued Medications Acetaminophen (Tylenol) 650 mg PO Q4H [facility] Bupivacaine HCl (Marcaine 0.5%) Confirm Administered Dose 30 ml .ROUTE .STK-MED ONE Stop: 04/09/19 07:28 Desflurane (Suprane) Confirm Administered Dose 480 ml .ROUTE .STK-MED ONE Stop: 04/09/19 07:29 Fentanyl (Sublimaze) Confirm Administered Dose 250 mcg .ROUTE .STK-MED ONE Stop: 04/09/19 07:11 Glycopyrrolate (Robinul) Confirm Administered Dose 0.2 mg .ROUTE .STK-MED ONE Stop: 04/09/19 08:44 Hydromorphone HCl (Dilaudid) 0.5 mg IVPUSH Q1H PRN PRN Reason: Abdominal Pain Last Admin: 04/08/19 23:03 Dose: 0.5 mg Hydromorphone HCl (Dilaudid) Confirm Administered Dose 2 mg .ROUTE .STK-MED ONE Stop: 04/09/19 09:13 Sodium Chloride (Normal Saline) 1,000 mls @ 999 mls/hr IV STAT ONE Stop: 04/08/19 21:03 Last Admin: 04/08/19 20:14 Dose: 999 mls/hr Piperacillin Sod/Tazobactam (Sod 3.375 gm/ Sodium Chloride) 50 mls @ 100 mls/ hr IV Q6H [facility] Last Admin: 04/09/19 11:15 Dose: 100 mls/hr Iopamidol (Isovue-370 (76%)) 100 ml IVPUSH ONETIME ONE Stop: 04/08/19 21:05 Last Admin: 04/08/19 21:05 Dose: 100 ml Ketamine HCl (Ketalar) Confirm Administered Dose 500 mg .ROUTE .STK-MED ONE Stop: 04/09/19 07:12 Lidocaine (Xylocaine-Mpf 2%) Confirm Administered Dose 5 ml .ROUTE .STK-MED ONE Stop: 04/09/19 07:11 Meperidine HCl (Demerol) Confirm Administered Dose 25 mg .ROUTE .STK-MED ONE Stop: 04/09/19 09:21 Midazolam HCl (Versed 1 Mg/Ml) Confirm Administered Dose 2 mg .ROUTE .STK-MED ONE Stop: 04/09/19 07:11 Ondansetron HCl (Zofran) Confirm Administered Dose 4 mg .ROUTE .ST-MED ONE Stop: 04/09/19 07:11 Propofol (Diprivan 20 Ml) Confirm Administered Dose 200 mg .ROUTE .STK-MED ONE Stop: 04/09/19 07:11 Rocuronium [place] (Zemuron) Confirm Administered Dose 100 mg .ROUTE .STK-MED ONE Stop: 04/09/19 07:12 Scopolamine (Transderm-Scop) Confirm Administered Dose 1.5 mg .ROUTE .ST-MED ONE Stop: 04/09/19 08:06 Sodium Chloride (Saline Flush) 10 ml FLUSH ASDIRECTED PRN PRN Reason: Keep Vein Open Sodium Chloride (Saline Flush) 2.5 ml FLUSH ASDIRECTED PRN PRN Reason: Keep Vein Open Succinylcholine Chloride (Succinylcholine Chloride) Confirm Administered Dose 200 mg .ROUTE .[facility]-MED ONE Stop: 04/09/19 07:12 - Exam Wound/Incisions: Healing Well, Dressing Dry and Intact General: Alert, Oriented, Cooperative Lungs: Normal Respiratory Effort Cardiovascular: Regular Rate GI/Abdominal Exam: Soft, Non-Tender, No Distention, No Mass Extremities: Normal Inspection Skin: Warm, Dry, Intact Neurological: Other (Easily falls asleep ) Psy/Mental Status: Alert, Normal Affect, Normal Mood Sepsis Event Note - Evaluation Sepsis Screening Result: No Definite Risk - Focused Exam Vital Signs: Vital Signs Temp Pulse Resp BP Pulse Ox Pulse Ox 04/09/19 11:45 36.8 C 10 L 96/48 L 94 L 04/09/19 11:36 94 L 04/09/19 11:31 94 L 04/09/19 11:30 8 L 96/50 L 89 L 04/09/19 11:15 8 L 89/38 L 91 L 04/09/19 10:57 36.8 C 10 L 113/61 92 L 04/09/19 10:30 93 10 L 101/58 L 94 L 04/09/19 10:24 93 10 L 100/52 L 94 L 04/09/19 10:20 98 10 L 84/28 L 93 L 04/09/19 10:14 93 10 L 91/38 L 93 L 04/09/19 10:09 94 10 L 87/34 L 93 L 04/09/19 10:04 86 10 L 82/38 L 100 04/09/19 10:00 89 10 L 92/36 L 100 04/09/19 09:55 90 10 L 88/42 L 100 04/09/19 09:50 95 10 L 90/37 L 100 04/09/19 09:44 98 10 L 86/41 L 100 04/09/19 09:40 96 11 L 93/42 L 100 04/09/19 09:35 98 12 92/42 L 100 04/09/19 09:30 103 H 13 87/41 L 100 04/09/19 09:24 37.1 C 116 H 12 102/45 L 100 04/09/19 07:47 36.1 C 79 18 97/53 L 97 04/09/19 04:00 36.6 C 77 15 95/51 L 94 L Date Exam was Performed: 04/09/19 Time Exam was Performed: 14:30 - Problem List & Annotations (1) Acute appendicitis SNOMED Code(s): 28062272 Code(s): K35.80 - UNSPECIFIED ACUTE APPENDICITIS Status: Acute Current Visit: Yes - Problem List Review Problem List Initiated/Reviewed/Updated: Yes - My Orders Last 24 Hours: Active Orders 24 hr Category Date Time Status Patient Status [ADT] Routine ADT 04/09/19 09:25 Active Ambulate [RC] ASDIRECTED Care 04/08/19 22:44 Active Cardiac Monitoring [RC] . DIRECTED Care 04/09/19 09:51 Active Oxygen Therapy [RC] PRN Care 04/08/19 22:44 Active Oxygen Therapy [RC] PRN Care 04/09/19 08:48 Active Pulse Oximetry [RC] CONTINUOUS Care 04/08/19 22:44 Active RT Incentive Spirometry [RC] ASDIRECTED Care 04/08/19 22:44 Active Acetaminophen [Tylenol] Med 04/09/19 12:00 Active 650 mg PO Q6H Albuterol [Proventil Neb Soln] Med 04/09/19 08:48 Active 2.5 mg NEB ONETIME PRN Atropine [Atropine 0.1 MG/ML] Med 04/09/19 08:48 Active 0.5 mg IVPUSH ASDIRECTED PRN Atropine [Atropine 0.1 MG/ML] Med 04/09/19 08:48 Active 1 mg IVPUSH ASDIRECTED PRN Dextrose 50% in Water Med 04/09/19 08:48 Active 50 ml IVPUSH ASDIRECTED PRN EPINEPHrine [EPINEPHrine 1:10,000] Med 04/09/19 08:48 Active 1 mg IVPUSH ASDIRECTED PRN HYDROmorphone [Dilaudid] Med 04/09/19 09:27 Active 1 mg IVPUSH Q1H PRN Ketorolac [Toradol] Med 04/09/19 09:45 Active 30 mg IVPUSH Q6H Lactated Ringers [Ringers, Lactated] 1,000 ml Med 04/08/19 23:00 Active IV ASDIRECTED Naloxone [Narcan] Med 04/09/19 08:48 Active 0.1 mg IVPUSH ASDIRECTED PRN Naproxen [Naprosyn] Med 04/09/19 18:00 Ordered 500 mg PO Q12HR Patient's Own Medication [Ptom] Med 04/09/19 18:00 Active 0 each .XX QID Sodium Chloride 0.9% [Normal Saline] Med 04/08/19 22:44 Active 10 ml IV ASDIRECTED PRN Sodium Chloride 0.9% [Saline Flush] Med 04/08/19 20:03 Active 10 ml FLUSH ASDIRECTED PRN Sodium Chloride 0.9% [Saline Flush] Med 04/08/19 20:03 Active 2.5 ml FLUSH ASDIRECTED PRN fentaNYL [Sublimaze] Med 04/09/19 08:48 Active 50 - 100 mcg IVPUSH Q5M PRN May Take Own Home Medications [OM.PC] Routine Oth 04/09/19 14:27 Ordered Peripheral IV Insertion Adult [OM.PC] Routine Oth 04/08/19 22:44 Ordered Saline Lock Insert [OM.PC] Stat Oth 04/08/19 20:03 Ordered Resuscitation Status Routine Resus Stat 04/08/19 22:44 Ordered Medication Orders Acetaminophen (Tylenol) 650 mg PO Q6H KIKI Albuterol (Proventil Neb Soln) 2.5 mg NEB ONETIME PRN PRN Reason: Wheezing Atropine Sulfate (Atropine 0.1 Mg/Ml) 0.5 mg IVPUSH ASDIRECTED PRN PRN Reason: Hypo-perfusion Atropine Sulfate (Atropine 0.1 Mg/Ml) 1 mg IVPUSH ASDIRECTED PRN PRN Reason: Hypo-Perfusion Dextrose/Water (Dextrose 50% In Water) 50 ml IVPUSH ASDIRECTED PRN PRN Reason: Hypoglycemia Epinephrine HCl (Epinephrine 1:10,000) 1 mg IVPUSH ASDIRECTED PRN PRN Reason: ACLS Guidelines Fentanyl (Sublimaze) 50 - 100 mcg IVPUSH Q5M PRN PRN Reason: Pain Hydromorphone HCl (Dilaudid) 1 mg IVPUSH Q1H PRN PRN Reason: Abdominal Pain Lactated Ringer's (Ringers, Lactated) 1,000 mls @ 150 mls/hr IV ASDIRECTED [facility] Last Admin: 04/09/19 10:50 Dose: 150 mls/hr Infusion: 04/09/19 05:33 Dose: 150 mls/hr Admin: 04/08/19 22:52 Dose: 150 mls/hr Ketorolac Tromethamine (Toradol) 30 mg IVPUSH Q6H [facility] Stop: 04/14/19 09:34 Last Admin: 04/09/19 11:14 Dose: 30 mg Naloxone HCl (Narcan) 0.1 mg IVPUSH ASDIRECTED PRN PRN Reason: Respiratory Depression Naproxen (Naprosyn) 500 mg PO Q12HR [facility] Buprenorphine 8 Mg (Tablet) 0 each .XX QID [facility] Sodium Chloride (Saline Flush) 10 ml FLUSH ASDIRECTED PRN PRN Reason: Keep Vein Open Sodium Chloride (Saline Flush) 2.5 ml FLUSH ASDIRECTED PRN PRN Reason: Keep Vein Open Sodium Chloride (Normal Saline) 10 ml IV ASDIRECTED PRN PRN Reason: IV Use - Plan Plan (Free Text/Narrative):: Pain: Scheduled IV toradol, po naproxen and po tylenol. IV dilaudid for severe pain only. Narcan available if needed for respiratory depression. Ok to take home Suboxone. Verified dosing with pharmacy. Ok to take home doses. Again monitor closely for respiratory depression. CV: Vitals stable. Pulmonary: Monitor respiratory status closely. Encourage IS use every hour and out of bed activity when safe. GI: Regular diet Renal: IVF 150ml/hr LR until taking in good po. Then ok to hold. Heme: Stable. Minimal blood loss during case ID: Unperforated appendicitis. D/C IV zosyn Px: No need for Gi px since advancing diet. SCDs for today. Visited with mother and updated her on plan. Called but no answer.
--- NOTE | 2019-04-09 16:10 | OR ---
SURGEON: YANCY RAMÍREZ MD DATE OF PROCEDURE: 04/08/2019 PREOPERATIVE DIAGNOSIS: Appendicitis. POSTOPERATIVE DIAGNOSIS: Appendicitis. PROCEDURE PERFORMED: Laparoscopic appendectomy. PRIMARY SURGEON: aYncy Ramírez MD. ANESTHESIA: General endotracheal anesthesia. FLUIDS: 600 mL crystalloid. ESTIMATED BLOOD LOSS: 10 mL. URINE OUTPUT: 50 mL. FINDINGS: Acutely enlarged and inflamed appendix. No evidence of rupture. COMPLICATIONS: None. INDICATIONS: The patient is a 28-year-old male, who presented last evening with a couple-hour history of right lower quadrant pain. Workup revealed a white count of 21,000, and CT scan of the abdomen and pelvis showed a very early appendicitis. The patient was tachycardic on arrival and responded to fluids. He was resuscitated with fluids overnight and given IV antibiotics. The patient and I discussed the pathophysiology of appendicitis. I explained the need for an appendectomy. I explained the laparoscopic procedure. Should I be unable to complete this safely, we would convert to open. I explained the expected perioperative course as well as the risks including bleeding, infection, or damage to surrounding structures. The patient is on Suboxone therapy and will likely require further monitoring postoperatively to ensure good pain control without respiratory compromise. The patient verbalized understanding and wishes to proceed. PROCEDURE IN DETAIL: The patient was brought into the OR and placed on the OR table in supine position. A time-out was completed verifying the patient's name, age, date of , allergies, and procedure to be performed. General endotracheal anesthesia was induced. The left arm was tucked to the patient's side and a Rodrigues catheter placed. The abdomen was prepped and draped in usual standard fashion. I anesthetized an area 2 fingerbreadths below the left subcostal margin in the midclavicular line with 0.5% Marcaine plain. A 1 cm incision was made using an 11 blade. A 5 mm optical trocar was used to gain entry into the abdomen in the left upper quadrant. All layers of the abdominal wall were visualized upon entry. The abdomen was insufflated and the camera was inserted into the abdomen. I inspected the area underneath my initial trocar placement. No damage to surrounding structures was noted. A 5 mm trocar was placed under direct visualization just left and lateral to the umbilicus. A 12 mm trocar was placed in the left lower quadrant under direct visualization as well. Given the patient's history of Suboxone, extra Marcaine was placed around these trocar sites to provide an adequate analgesic effect postoperatively. The patient was then placed into Trendelenburg position and airplaned slightly to the left. I turned my attention to the right lower quadrant. I identified the cecum. The taenia were followed down to the base of the appendix. The appendix appeared acutely inflamed and enlarged. There was no evidence of rupture. There was no evidence of fluid in the pelvis or surrounding area. The tip of the appendix was grasped and the appendiceal mesentery was taken down using a Harmonic scalpel device in [id number] fashion. Near the base of the appendix, a [place] dissector was used to facilitate dissection and great care was taken to avoid damage to surrounding structures. Once the appendiceal mesentery was completely freed and I could clearly see the base my appendix, an endoscopic stapling device was brought into the field. I stapled and transected across the base of the appendix using a 45 mm blue load of shelley. The stapler was removed and the appendix was placed in an Endo Catch bag, which was removed through the 12 mm port. The 12 mm trocar was reinserted and I inspected my operative field. The area was hemostatic and the staple line appeared to be intact. No irrigation was required. I closed the fascia at the 12 mm trocar site using a single interrupted 0 Vicryl suture using a Abhilash-Josué device. The 5 mm trocars were then removed under direct visualization and the abdomen allowed to desufflate. The subcutaneous fat in the left lower quadrant incision was closed with interrupted 3-0 Vicryl sutures. The skin was closed with a running 4-0 Monocryl stitch. The 5 mm trocar sites were closed with interrupted 4-0 Monocryl suture. Steri-Strips and sterile dressings were applied. The patient tolerated the procedure well. Upon waking up, the patient required 2 mg of Dilaudid and 100 mcg of fentanyl in order to control his pain and make him comfortable. He was extubated and his respiratory status was stable in the PACU. He will be admitted to the ICU for close respiratory monitoring and pain control postoperatively. ANDERSON / TERRENCE /[id number]
[2019-04-09] MEDS: Ketorolac 30 MG/ML SDV IVPUSH SCH (16:46)
[2019-04-09] MEDS: HYDROmorphone 1 MG/ML Syringe IVPUSH PRN ×2 (17:43→19:24)
[2019-04-09] MEDS ORDERED: Naproxen 500 MG Tab PO SCH ×2 (18:00→23:30)
[2019-04-09] MEDS ORDERED: Sodium Chloride 0.9% 10 ML Syringe FLUSH PRN (18:18)
[2019-04-09] MEDS ORDERED: Sodium Chloride 0.9% 2.5 ML Syringe FLUSH PRN (18:18)
[2019-04-09] MEDS: BUPRENORPHINE 8 MG SCH (19:55)
[2019-04-09] MEDS: Nicotine 14 MG/24 Hr Patch TRDERM SCH (19:57)
[2019-04-09] MEDS: Pantoprazole 40 MG Tab.CR PO SCH (20:51)
[2019-04-10] MEDS: Acetaminophen 325 MG Tab PO SCH ×5 (00:22→23:59)
[2019-04-10] MEDS: BUPRENORPHINE 8 MG SCH ×4 (00:24→18:14)
[2019-04-10] MEDS: HYDROmorphone 1 MG/ML Syringe IVPUSH PRN (02:07)
[2019-04-10] MEDS: Ketorolac 30 MG/ML SDV IVPUSH SCH (05:38)
[2019-04-10 06:07] LABS: BLOOD UREA NITROGEN,BUN 9 mg/dL (7.0-18.0); CARBON DIOXIDE,CO2 31.1 mmol/L (21.0-32.0); CHLORIDE,CL 107 mmol/L (98-107); GLUCOSE RANDOM 101 mg/dL (74-106); POTASSIUM,K 4.4 mmol/L (3.5-5.1); SODIUM,NA 144 mmol/L (136-148)
--- NOTE | 2019-04-10 07:08 | PCM48HPAN ---
Post Anesthesia Note - EVALUATION WITHIN 48HRS OF ANESTHETIC Vital Signs in Normal Range: Yes Patient Participated in Evaluation: Yes Respiratory Function Stable: Yes Airway Patent: Yes Cardiovascular Function Stable: Yes Hydration Status Stable: Yes Pain Control Satisfactory: Yes Nausea and Vomiting Control Satisfactory: Yes Mental Status Recovered: Yes Vital Signs: Last Vital Signs Temp 37.0 C 04/10/19 04:00 Pulse 93 04/09/19 10:30 Resp 10 L 04/10/19 06:00 BP 92/42 L 04/10/19 06:00 Pulse Ox 95 04/10/19 06:00
[2019-04-10] MEDS: Pantoprazole 40 MG Tab.CR PO SCH (08:08)
[2019-04-10] MEDS: Nicotine 14 MG/24 Hr Patch TRDERM SCH (08:09)
[2019-04-10] MEDS ORDERED: Naproxen 500 MG Tab PO SCH (09:48)
[2019-04-10] MEDS: Ketorolac 10 MG Tab PO SCH ×3 (10:51→21:46)
[2019-04-10] MEDS: Polyethylene Glycol 3350 Powder 17 GM Packet PO SCH (10:51)
--- NOTE | 2019-04-10 14:17 | PCM.SURGPN ---
- General Info Date of Service: 04/10/19 Date of Surgery/Procedure: 04/09/19 POD#: 1 - Review of Systems General: Reports: No Symptoms Pulmonary: Reports: No Symptoms Cardiovascular: Reports: No Symptoms Gastrointestinal: Reports: Abdominal Pain (pain described as "annoying" and not as well controlled as it could be), Flatus. Denies: Decreased Appetite Genitourinary: Reports: No Symptoms Musculoskeletal: Reports: No Symptoms Skin: Reports: No Symptoms - Patient Data Vitals - Most Recent: Last Vital Signs Temp 37.3 C 04/10/19 12:52 Pulse 93 04/09/19 10:30 Resp 12 04/10/19 13:00 BP 101/48 L 04/10/19 13:00 Pulse Ox 98 04/10/19 13:00 Weight - Most Recent: 105.4 kg I&O - Last 24 Hours: Intake & Output 04/09/19 04/10/19 04/10/19 22:59 06:59 14:59 Intake Total 1629 930 Output Total 1050 Balance 1629 -120 Lab Results Last 24 Hrs: Laboratory Results - last 24 hr 04/10/19 Range/Units 05:38 Sodium 144 (136-148) mmol/L Potassium 4.4 (3.5-5.1) mmol/L Chloride 107 (98-107) mmol/L Carbon Dioxide 31.1 (21.0-32.0) mmol/L BUN 9 (7.0-18.0) mg/dL Creatinine 0.9 (0.8-1.3) mg/dL Est Cr Clr Drug Dosing 131.31 mL/min Estimated GFR (MDRD) > 60.0 ml/min Glucose 101 (74-106) mg/dL Calcium 8.5 (8.5-10.1) mg/dL Med Orders - Current: Current Medications Acetaminophen (Tylenol) 650 mg PO Q6H KIKI Last Admin: 04/10/19 12:52 Dose: 650 mg Albuterol (Proventil Neb Soln) 2.5 mg NEB ONETIME PRN PRN Reason: Wheezing Atropine Sulfate (Atropine 0.1 Mg/Ml) 0.5 mg IVPUSH ASDIRECTED PRN PRN Reason: Hypo-perfusion Atropine Sulfate (Atropine 0.1 Mg/Ml) 1 mg IVPUSH ASDIRECTED PRN PRN Reason: Hypo-Perfusion Dextrose/Water (Dextrose 50% In Water) 50 ml IVPUSH ASDIRECTED PRN PRN Reason: Hypoglycemia Epinephrine HCl (Epinephrine 1:10,000) 1 mg IVPUSH ASDIRECTED PRN PRN Reason: ACLS Guidelines Lactated Ringer's (Ringers, Lactated) 1,000 mls @ 150 mls/hr IV ASDIRECTED [facility] Last Admin: 04/09/19 15:42 Dose: 150 mls/hr Ketorolac Tromethamine (Toradol) 10 mg PO Q6H [facility] Stop: 04/15/19 10:01 Last Admin: 04/10/19 10:51 Dose: 10 mg Naloxone HCl (Narcan) 0.1 mg IVPUSH ASDIRECTED PRN PRN Reason: Respiratory Depression Nicotine (Habitrol) 14 mg TRDERM DAILY [facility] Last Admin: 04/10/19 08:09 Dose: Not Given Pantoprazole Sodium (Protonix) 40 mg PO ACBREAKFAST [facility] Last Admin: 04/10/19 08:08 Dose: 40 mg Buprenorphine 8 Mg (Tablet) 0 each .XX QID [facility] Last Admin: 04/10/19 12:34 Dose: 1 each Polyethylene Glycol (Miralax) 17 gm PO DAILY [facility] Last Admin: 04/10/19 10:51 Dose: 17 gm Sodium Chloride (Saline Flush) 10 ml FLUSH ASDIRECTED PRN PRN Reason: Keep Vein Open Sodium Chloride (Saline Flush) 2.5 ml FLUSH ASDIRECTED PRN PRN Reason: Keep Vein Open Sodium Chloride (Normal Saline) 10 ml IV ASDIRECTED PRN PRN Reason: IV Use Discontinued Medications Acetaminophen (Tylenol) 650 mg PO Q4H [facility] Bupivacaine HCl (Marcaine 0.5%) Confirm Administered Dose 30 ml .ROUTE .STK-MED ONE Stop: 04/09/19 07:28 Desflurane (Suprane) Confirm Administered Dose 480 ml .ROUTE .STK-MED ONE Stop: 04/09/19 07:29 Fentanyl (Sublimaze) Confirm Administered Dose 250 mcg .ROUTE .STK-MED ONE Stop: 04/09/19 07:11 Fentanyl (Sublimaze) 50 - 100 mcg IVPUSH Q5M PRN PRN Reason: Pain Glycopyrrolate (Robinul) Confirm Administered Dose 0.2 mg .ROUTE .STK-MED ONE Stop: 04/09/19 08:44 Hydromorphone HCl (Dilaudid) 0.5 mg IVPUSH Q1H PRN PRN Reason: Abdominal Pain Last Admin: 04/08/19 23:03 Dose: 0.5 mg Hydromorphone HCl (Dilaudid) Confirm Administered Dose 2 mg .ROUTE .STK-MED ONE Stop: 04/09/19 09:13 Hydromorphone HCl (Dilaudid) 1 mg IVPUSH Q1H PRN PRN Reason: Abdominal Pain Last Admin: 04/10/19 02:07 Dose: 1 mg Sodium Chloride (Normal Saline) 1,000 mls @ 999 mls/hr IV STAT ONE Stop: 04/08/19 21:03 Last Admin: 04/08/19 20:14 Dose: 999 mls/hr Piperacillin Sod/Tazobactam (Sod 3.375 gm/ Sodium Chloride) 50 mls @ 100 mls/ hr IV Q6H [facility] Last Admin: 04/09/19 11:15 Dose: 100 mls/hr Iopamidol (Isovue-370 (76%)) 100 ml IVPUSH ONETIME ONE Stop: 04/08/19 21:05 Last Admin: 04/08/19 21:05 Dose: 100 ml Ketamine HCl (Ketalar) Confirm Administered Dose 500 mg .ROUTE .STK-MED ONE Stop: 04/09/19 07:12 Ketorolac Tromethamine (Toradol) 30 mg IVPUSH Q6H [facility] Stop: 04/14/19 09:34 Last Admin: 04/09/19 11:14 Dose: 30 mg Ketorolac Tromethamine (Toradol) 30 mg IVPUSH Q12H [facility] Stop: 04/13/19 17:30 Last Admin: 04/10/19 05:38 Dose: 30 mg Lidocaine (Xylocaine-Mpf 2%) Confirm Administered Dose 5 ml .ROUTE .STK-MED ONE Stop: 04/09/19 07:11 Meperidine HCl (Demerol) Confirm Administered Dose 25 mg .ROUTE .STK-MED ONE Stop: 04/09/19 09:21 Midazolam HCl (Versed 1 Mg/Ml) Confirm Administered Dose 2 mg .ROUTE .STK-MED ONE Stop: 04/09/19 07:11 Naproxen (Naprosyn) 500 mg PO Q12HR [facility] Naproxen (Naprosyn) 500 mg PO Q12H [facility] Last Admin: 04/10/19 00:20 Dose: Not Given Naproxen (Naprosyn) 250 mg PO Q12H [facility] Last Admin: 04/10/19 10:32 Dose: Not Given Ondansetron HCl (Zofran) Confirm Administered Dose 4 mg .ROUTE .STK-MED ONE Stop: 04/09/19 07:11 Propofol (Diprivan 20 Ml) Confirm Administered Dose 200 mg .ROUTE .STK-MED ONE Stop: 04/09/19 07:11 Rocuronium [place] (Zemuron) Confirm Administered Dose 100 mg .ROUTE .STK-MED ONE Stop: 04/09/19 07:12 Scopolamine (Transderm-Scop) Confirm Administered Dose 1.5 mg .ROUTE .[employer]-MED ONE Stop: 04/09/19 08:06 Sodium Chloride (Saline Flush) 10 ml FLUSH ASDIRECTED PRN PRN Reason: Keep Vein Open Sodium Chloride (Saline Flush) 2.5 ml FLUSH ASDIRECTED PRN PRN Reason: Keep Vein Open Sodium Chloride (Saline Flush) 10 ml FLUSH ASDIRECTED PRN PRN Reason: Keep Vein Open Sodium Chloride (Saline Flush) 2.5 ml FLUSH ASDIRECTED PRN PRN Reason: Keep Vein Open Succinylcholine Chloride (Succinylcholine Chloride) Confirm Administered Dose 200 mg .ROUTE .STK-MED ONE Stop: 04/09/19 07:12 - Exam Wound/Incisions: Healing Well, Drainage (scant ) General: Alert, Oriented, Cooperative HEENT: Pupils Equal, Pupils Reactive Lungs: Normal Respiratory Effort Cardiovascular: Regular Rate GI/Abdominal Exam: Soft, Non-Tender, No Mass, Distended (mild) Extremities: Normal Inspection Sepsis Event Note - Evaluation Sepsis Screening Result: No Definite Risk - Focused Exam Vital Signs: Vital Signs Temp Temp Resp BP Pulse Ox Pulse Ox 04/10/19 13:00 12 101/48 L 98 04/10/19 12:52 37.3 C 04/10/19 12:00 37.3 C 8 L 94/40 L 94 L 04/10/19 11:00 14 96/57 L 94 L 94 L 04/10/19 10:00 15 97/55 L 95 04/10/19 09:00 6 L 97/45 L 94 L 04/10/19 08:00 36.4 C 9 L 97/45 L 95 04/10/19 07:00 9 L 98/45 L 97 04/10/19 06:00 10 L 92/42 L 95 04/10/19 05:00 11 L 97/46 L 95 04/10/19 04:00 37.0 C 9 L 95 04/10/19 03:00 11 L 99/48 L 96 Date Exam was Performed: 04/10/19 Time Exam was Performed: 14:13 - Problem List & Annotations (1) Acute appendicitis SNOMED Code(s): 40085111 Code(s): K35.80 - UNSPECIFIED ACUTE APPENDICITIS Status: Acute Current Visit: Yes - Problem List Review Problem List Initiated/Reviewed/Updated: Yes - My Orders Last 24 Hours: Active Orders 24 hr Category Date Time Status Communication Order [RC] Q12H Care 04/09/19 14:38 Active RT End Tidal CO2 Monitoring [RC] BEDTIME Care 04/09/19 18:19 Active Regular Diet [DIET] Diet 04/09/19 Dinner Active Ketorolac [Toradol] Med 04/10/19 10:00 Active 10 mg PO Q6H Nicotine [Habitrol] Med 04/09/19 15:45 Active 14 mg TRDERM DAILY Pantoprazole [ProTONIX] Med 04/09/19 20:45 Active 40 mg PO ACBREAKFAST Patient's Own Medication [Ptom] Med 04/09/19 18:00 Active 0 each .XX QID Polyethylene Glycol 3350 [MiraLAX] Med 04/10/19 10:45 Active 17 gm PO DAILY Convert IV to Saline Lock [OM.PC] Routine Oth 04/09/19 18:00 Ordered May Take Own Home Medications [OM.PC] Routine Oth 04/09/19 14:27 Ordered Medication Orders Acetaminophen (Tylenol) 650 mg PO Q6H KIKI Last Admin: 04/10/19 12:52 Dose: 650 mg Admin: 04/10/19 06:01 Dose: 650 mg Admin: 04/10/19 00:22 Dose: 650 mg Admin: 04/09/19 17:44 Dose: 650 mg Admin: 04/09/19 13:00 Dose: 650 mg Albuterol (Proventil Neb Soln) 2.5 mg NEB ONETIME PRN PRN Reason: Wheezing Atropine Sulfate (Atropine 0.1 Mg/Ml) 0.5 mg IVPUSH ASDIRECTED PRN PRN Reason: Hypo-perfusion Atropine Sulfate (Atropine 0.1 Mg/Ml) 1 mg IVPUSH ASDIRECTED PRN PRN Reason: Hypo-Perfusion Dextrose/Water (Dextrose 50% In Water) 50 ml IVPUSH ASDIRECTED PRN PRN Reason: Hypoglycemia Epinephrine HCl (Epinephrine 1:10,000) 1 mg IVPUSH ASDIRECTED PRN PRN Reason: ACLS Guidelines Lactated Ringer's (Ringers, Lactated) 1,000 mls @ 150 mls/hr IV ASDIRECTED [facility] Last Admin: 04/09/19 15:42 Dose: 150 mls/hr Infusion: 04/09/19 15:42 Dose: 150 mls/hr Admin: 04/09/19 10:50 Dose: 150 mls/hr Infusion: 04/09/19 05:33 Dose: 150 mls/hr Admin: 04/08/19 22:52 Dose: 150 mls/hr Ketorolac Tromethamine (Toradol) 10 mg PO Q6H [facility] Stop: 04/15/19 10:01 Last Admin: 04/10/19 10:51 Dose: 10 mg Naloxone HCl (Narcan) 0.1 mg IVPUSH ASDIRECTED PRN PRN Reason: Respiratory Depression Nicotine (Habitrol) 14 mg TRDERM DAILY [facility] Last Admin: 04/10/19 08:09 Dose: Not Given Admin: 04/09/19 19:57 Dose: Not Given Pantoprazole Sodium (Protonix) 40 mg PO ACBREAKFAST [facility] Last Admin: 04/10/19 08:08 Dose: 40 mg Admin: 04/09/19 20:51 Dose: 40 mg Buprenorphine 8 Mg (Tablet) 0 each .XX QID [facility] Last Admin: 04/10/19 12:34 Dose: 1 each Admin: 04/10/19 06:43 Dose: Not Given Admin: 04/10/19 00:24 Dose: 1 each Admin: 04/09/19 19:55 Dose: 1 each Polyethylene Glycol (Miralax) 17 gm PO DAILY [facility] Last Admin: 04/10/19 10:51 Dose: 17 gm Sodium Chloride (Saline Flush) 10 ml FLUSH ASDIRECTED PRN PRN Reason: Keep Vein Open Sodium Chloride (Saline Flush) 2.5 ml FLUSH ASDIRECTED PRN PRN Reason: Keep Vein Open Sodium Chloride (Normal Saline) 10 ml IV ASDIRECTED PRN PRN Reason: IV Use - Plan Plan (Free Text/Narrative):: The patient had a couple doses of IV Dilaudid yesterday evening and missed a dose of naproxen last night then required IV Dilaudid around 2 AM. Will hold all IV narcotics today. Discussed his case with our pharmacist. We'll schedule oral Toradol every 6 hours and keep the scheduled Tylenol to see if we can control his pain adequately with this regiment. We'll hold naproxen at this time since we are placing him on a high dose of Toradol. Patient is mildly bloated but is passing gas and tolerating a diet well. We'll start MiraLAX to promote a bowel movement. Discontinued IV fluids last night. Urine output is adequate and BUN/creatinine are stable. The patient's respiratory rate was low last night (8-10). Hopefully now that we discontinue narcotics this will be better tonight and he can remain off oxygen through the evening. His blood pressure runs slightly low which may be an effect of the Suboxone. It is not hypotensive at this time. We'll continue to monitor his blood pressure through the evening and while he is asleep. If the patient's vital signs remained stable, his pain is managed on Tylenol and Toradol, will plan for discharge in the morning.
[2019-04-10] MEDS ORDERED: Sennosides 8.6 MG Tab PO ONE (19:03)
[2019-04-10] MEDS ORDERED: Bisacodyl 5 MG Tab PO PRN (20:30)
[2019-04-11] MEDS: BUPRENORPHINE 8 MG SCH ×2 (00:03→06:50)
[2019-04-11] MEDS: Ketorolac 10 MG Tab PO SCH (04:00)
[2019-04-11] MEDS: Acetaminophen 325 MG Tab PO SCH (06:46)
[2019-04-11] MEDS: Nicotine 14 MG/24 Hr Patch TRDERM SCH (08:02)
[2019-04-11] MEDS: Pantoprazole 40 MG Tab.CR PO SCH (08:15)
[2019-04-11] MEDS: Polyethylene Glycol 3350 Powder 17 GM Packet PO SCH (08:15)
--- NOTE | 2019-04-11 09:42 | PCM.DCSUM1 ---
Discharge Summary - Hospital Course Free Text/Narrative:: Patient is a 28-year-old male who presented with acute appendicitis. On arrival he was tachycardic and was admitted for fluid resuscitation and IV antibiotics. He was taken the next morning to the operating room and underwent an uneventful laparoscopic appendectomy. The patient takes Suboxone for previous narcotic addiction. Following our protocol, he was admitted to the ICU postoperatively for close respiratory monitoring and pain control. Postop day 1 he did require IV Dilaudid to control his pain. We restarted his home Suboxone. This patient required supplemental oxygen and close monitoring the night of postop day 1. Postop day 2 we removed all of his narcotics and started him on a portal Tylenol pain regimen. Using this we were able to control his pain without the need for supplemental narcotic administration. His vital signs remained stable throughout the day and his respiratory status improved. He no longer needed supplement oxygen and his respiratory rate increased. His blood pressure remained at the lower end of normal throughout his stay. It was felt this was likely due to some of the effects of the Suboxone. It was never low enough to require pressors or fluid boluses. His diet was advanced without difficulty. Patient is mildly distended but was passing gas. The patient was cleared for discharge on postop day 2. - Discharge Data Discharge Date: 04/11/19 Discharge Disposition: Home, Self-Care 01 Condition: Fair - Referral to Home Health Primary Care Physician: PCP None - Discharge Diagnosis/Problem(s) (1) Acute appendicitis SNOMED Code(s): 15255513 ICD Code: K35.80 - UNSPECIFIED ACUTE APPENDICITIS Status: Acute Current Visit: Yes - Patient Summary/Data Operative Procedure(s) Performed: Laparoscopic appendectomy - Patient Instructions Diet: Regular Diet as Tolerated Activity: No Lifting Over 20 Pounds, Rest and Relax Today Driving: Do Not Drive Showering/Bathing: May Shower, No Tub Bathing/Swimming Notify Provider of: Fever, Increased Pain, Swelling and Redness, Drainage, Nausea and/or Vomiting Other/Special Instructions: No work for 2 weeks. - Discharge Plan *PRESCRIPTION DRUG MONITORING PROGRAM REVIEWED*: Yes *COPY OF PRESCRIPTION DRUG MONITORING REPORT IN PATIENT DINH: Yes Prescriptions/Med Rec: Acetaminophen [Tylenol] 650 mg PO Q6H #36 tablet bisacodyL [Dulcolax] 5 mg PO DAILY #5 tablet Pantoprazole [ProTONIX] 40 mg PO ACBREAKFAST #30 tab.cr Polyethylene Glycol 3350 [MiraLAX] 17 gm PO DAILY #7 packet Home Medications: Home Meds Buprenorphine [Subutex] 4 mg SL QID 04/09/19 [History] Acetaminophen [Tylenol] 650 mg PO Q6H #36 tablet 04/11/19 [Rx] Pantoprazole [ProTONIX] 40 mg PO ACBREAKFAST #30 tab.cr 04/11/19 [Rx] Polyethylene Glycol 3350 [MiraLAX] 17 gm PO DAILY #7 packet 04/11/19 [Rx] bisacodyL [Dulcolax] 5 mg PO DAILY #5 tablet 04/11/19 [Rx] Patient Handouts: Acetaminophen tablets or caplets, Laparoscopic Appendectomy, Adult, Care After, [id number], Pantoprazole tablets, Ketorolac tablets, Docusate capsules, Polyethylene Glycol powder Referrals: Yancy Ramírez MD [Physician] - 04/18/19 8:00 am - Discharge Summary/Plan Comment DC Time >30 min.: No - Patient Data Vitals - Most Recent: Last Vital Signs Temp 37.0 C 04/11/19 08:00 Pulse 93 04/09/19 10:30 Resp 11 L 04/11/19 08:00 BP 96/59 L 04/11/19 08:00 Pulse Ox 93 L 04/11/19 08:00 Weight - Most Recent: 106.8 kg I&O - Last 24 hours: Intake & Output 04/10/19 04/11/19 04/11/19 22:59 06:59 14:59 Intake Total 750 500 Output Total 500 Balance 250 500 Med Orders - Current: Current Medications Acetaminophen (Tylenol) 650 mg PO Q6H KIKI Last Admin: 04/11/19 06:46 Dose: 650 mg Albuterol (Proventil Neb Soln) 2.5 mg NEB ONETIME PRN PRN Reason: Wheezing Atropine Sulfate (Atropine 0.1 Mg/Ml) 0.5 mg IVPUSH ASDIRECTED PRN PRN Reason: Hypo-perfusion Atropine Sulfate (Atropine 0.1 Mg/Ml) 1 mg IVPUSH ASDIRECTED PRN PRN Reason: Hypo-Perfusion Bisacodyl (Dulcolax) 5 mg PO DAILY PRN PRN Reason: Constipation Dextrose/Water (Dextrose 50% In Water) 50 ml IVPUSH ASDIRECTED PRN PRN Reason: Hypoglycemia Epinephrine HCl (Epinephrine 1:10,000) 1 mg IVPUSH ASDIRECTED PRN PRN Reason: ACLS Guidelines Lactated Ringer's (Ringers, Lactated) 1,000 mls @ 150 mls/hr IV ASDIRECTED [facility] Last Admin: 04/09/19 15:42 Dose: 150 mls/hr Ketorolac Tromethamine (Toradol) 10 mg PO Q6H [facility] Stop: 04/15/19 10:01 Last Admin: 04/11/19 04:00 Dose: 10 mg Naloxone HCl (Narcan) 0.1 mg IVPUSH ASDIRECTED PRN PRN Reason: Respiratory Depression Nicotine (Habitrol) 14 mg TRDERM DAILY [facility] Last Admin: 04/11/19 08:02 Dose: Not Given Pantoprazole Sodium (Protonix) 40 mg PO ACBREAKFAST [facility] Last Admin: 04/11/19 08:15 Dose: 40 mg Buprenorphine 8 Mg (Tablet) 0 each .XX QID [facility] Last Admin: 04/11/19 06:50 Dose: 1 each Polyethylene Glycol (Miralax) 17 gm PO DAILY [facility] Last Admin: 04/11/19 08:15 Dose: Not Given Sodium Chloride (Saline Flush) 10 ml FLUSH ASDIRECTED PRN PRN Reason: Keep Vein Open Sodium Chloride (Saline Flush) 2.5 ml FLUSH ASDIRECTED PRN PRN Reason: Keep Vein Open Sodium Chloride (Normal Saline) 10 ml IV ASDIRECTED PRN PRN Reason: IV Use Discontinued Medications Acetaminophen (Tylenol) 650 mg PO Q4H [facility] Bupivacaine HCl (Marcaine 0.5%) Confirm Administered Dose 30 ml .ROUTE .STK-MED ONE Stop: 04/09/19 07:28 Desflurane (Suprane) Confirm Administered Dose 480 ml .ROUTE .STK-MED ONE Stop: 04/09/19 07:29 Fentanyl (Sublimaze) Confirm Administered Dose 250 mcg .ROUTE .STK-MED ONE Stop: 04/09/19 07:11 Fentanyl (Sublimaze) 50 - 100 mcg IVPUSH Q5M PRN PRN Reason: Pain Glycopyrrolate (Robinul) Confirm Administered Dose 0.2 mg .ROUTE .STK-MED ONE Stop: 04/09/19 08:44 Hydromorphone HCl (Dilaudid) 0.5 mg IVPUSH Q1H PRN PRN Reason: Abdominal Pain Last Admin: 04/08/19 23:03 Dose: 0.5 mg Hydromorphone HCl (Dilaudid) Confirm Administered Dose 2 mg .ROUTE .STK-MED ONE Stop: 04/09/19 09:13 Hydromorphone HCl (Dilaudid) 1 mg IVPUSH Q1H PRN PRN Reason: Abdominal Pain Last Admin: 04/10/19 02:07 Dose: 1 mg Sodium Chloride (Normal Saline) 1,000 mls @ 999 mls/hr IV STAT ONE Stop: 04/08/19 21:03 Last Admin: 04/08/19 20:14 Dose: 999 mls/hr Piperacillin Sod/Tazobactam (Sod 3.375 gm/ Sodium Chloride) 50 mls @ 100 mls/ hr IV Q6H [facility] Last Admin: 04/09/19 11:15 Dose: 100 mls/hr Iopamidol (Isovue-370 (76%)) 100 ml IVPUSH ONETIME ONE Stop: 04/08/19 21:05 Last Admin: 04/08/19 21:05 Dose: 100 ml Ketamine HCl (Ketalar) Confirm Administered Dose 500 mg .ROUTE .STK-MED ONE Stop: 04/09/19 07:12 Ketorolac Tromethamine (Toradol) 30 mg IVPUSH Q6H [facility] Stop: 04/14/19 09:34 Last Admin: 04/09/19 11:14 Dose: 30 mg Ketorolac Tromethamine (Toradol) 30 mg IVPUSH Q12H [facility] Stop: 04/13/19 17:30 Last Admin: 04/10/19 05:38 Dose: 30 mg Lidocaine (Xylocaine-Mpf 2%) Confirm Administered Dose 5 ml .ROUTE .STK-MED ONE Stop: 04/09/19 07:11 Meperidine HCl (Demerol) Confirm Administered Dose 25 mg .ROUTE .STK-MED ONE Stop: 04/09/19 09:21 Midazolam HCl (Versed 1 Mg/Ml) Confirm Administered Dose 2 mg .ROUTE .STK-MED ONE Stop: 04/09/19 07:11 Naproxen (Naprosyn) 500 mg PO Q12HR [facility] Naproxen (Naprosyn) 500 mg PO Q12H [facility] Last Admin: 04/10/19 00:20 Dose: Not Given Naproxen (Naprosyn) 250 mg PO Q12H [facility] Last Admin: 04/10/19 10:32 Dose: Not Given Ondansetron HCl (Zofran) Confirm Administered Dose 4 mg .ROUTE .STK-MED ONE Stop: 04/09/19 07:11 Propofol (Diprivan 20 Ml) Confirm Administered Dose 200 mg .ROUTE .STK-MED ONE Stop: 04/09/19 07:11 Rocuronium [place] (Zemuron) Confirm Administered Dose 100 mg .ROUTE .STK-MED ONE Stop: 04/09/19 07:12 Scopolamine (Transderm-Scop) Confirm Administered Dose 1.5 mg .ROUTE .STK-MED ONE Stop: 04/09/19 08:06 Senna (Senna) 8.6 mg PO ONETIME ONE Stop: 04/10/19 19:04 Last Admin: 04/10/19 19:28 Dose: 8.6 mg Sodium Chloride (Saline Flush) 10 ml FLUSH ASDIRECTED PRN PRN Reason: Keep Vein Open Sodium Chloride (Saline Flush) 2.5 ml FLUSH ASDIRECTED PRN PRN Reason: Keep Vein Open Sodium Chloride (Saline Flush) 10 ml FLUSH ASDIRECTED PRN PRN Reason: Keep Vein Open Sodium Chloride (Saline Flush) 2.5 ml FLUSH ASDIRECTED PRN PRN Reason: Keep Vein Open Succinylcholine Chloride (Succinylcholine Chloride) Confirm Administered Dose 200 mg .ROUTE .STK-MED ONE Stop: 04/09/19 07:12 - Exam Quality Assessment: Reports: Supplemental Oxygen General: Reports: Alert, Oriented Lungs: Reports: Clear to Auscultation, Normal Respiratory Effort Cardiovascular: Reports: Regular Rate, Regular Rhythm GI/Abdominal Exam: Soft, Non-Tender, No Distention, No Mass Back Exam: Reports: Normal Inspection Extremities: Normal Inspection Skin: Reports: Warm, Dry, Intact Wound/Incisions: Reports: Healing Well, Dressing Dry and Intact Psy/Mental Status: Reports: Alert, Normal Affect, Normal Mood
== END 2019-04-11 09:40 | disposition home or self-care (01) | DRG 343 ==
LOC: MW.ED 19:41 → MW.MS 22:58 → MW.SDS 22:58 → MW.ICU 04-09 09:25
PROVIDERS: ADMIT Surgery; ATTEND Surgery
PROC: 0DTJ4ZZ Resection of Appendix, Percutaneous Endoscopic Approach (ICD-10-PCS; principal; 2019-04-09)
DX: K35.80 Unspecified acute appendicitis (principal); F17.200 Nicotine dependence, unspecified, uncomplicated; Z88.7 Allergy status to serum and vaccine; Z88.1 Allergy status to other antibiotic agents
CPT/HCPCS: 36415; 74177; 74177-26; 80048; 80053; 81001; 85025; 88304; 96360; 99284; 99285-25; A9270-GY; J0330; J1170; J1885; J2001; J2175; J2250; J2405; J2543; J2704; J3010; J3490; J7030; J7050; J7120; Q9967

== ENCOUNTER 2019-10-14 12:42 | Emergency (ER) | payer OTHER ==
[2019-10-14] MEDS ORDERED: Docusate Sodium Liquid 100 MG/10 ML UD Cup PO ONE (13:11)
--- NOTE | 2019-10-14 14:35 | EDM.PDOC ---
ED HPI GENERAL MEDICAL PROBLEM - General Chief Complaint: ENT Problem Stated Complaint: PLUGGED EAR Time Seen by Provider: 10/14/19 12:49 - History of Present Illness INITIAL COMMENTS - FREE TEXT/NARRATIVE: History of present illness: 29-year-old male presenting with left ear fullness/wax obstruction. The patient reports longstanding history of wax blockages for many years, for which he uses the wax ear candle, has previously tried peroxide. He does report this is a chronic issue but worsened in the last few days. Review of systems: As per history of present illness and below otherwise all systems reviewed and negative. Past medical history: As per history of present illness and as reviewed below otherwise noncontributory. Surgical history: As per history of present illness and as reviewed below otherwise nonco ntributory. Social history: No reported history of drug or alcohol abuse. Family history: As per history of present illness and as reviewed below otherwise noncontributory. Physical exam: GEN: no acute distress, well appearing HEENT: Atraumatic, normocephalic, mucous membranes moist, right TM unremarkable, otic canal with small amount of wax, otherwise clear. Left TM obscured by impacted cerumen. Canal nontender without any narrowing or erythema. Neck: supple, nontender, trachea midline. Lungs: No respiratory distress. Heart: RRR Neuro: Awake, alert, oriented. Neuro Exam nonfocal. Skin: warm, dry, no lesions Diagnostics: [] Therapeutics: [] MDM: Impression: [] Plan: [] Definitive disposition and diagnosis as appropriate pending reevaluation and review of above. Left Ear Pain Score (Numeric/FACES): 1 - Related Data Allergies Allergy/AdvReac Type Severity Reaction Status Date / Time ciprofloxacin [From Cipro] Allergy Vomiting Verified 10/14/19 12:54 pertussis vaccine,fluid Allergy Seizure Verified 10/14/19 12:54 [Pertussis Vaccine,Fluid] Home Meds: Home Meds Buprenorphine [Subutex] 8 mg SL QID 04/09/19 [History] Past Medical History - Past Health History Medical/Surgical History: Denies Medical/Surgical History HEENT History: Reports: None Cardiovascular History: Reports: None Respiratory History: Reports: None Genitourinary History: Reports: Renal Calculus, Other (See Below) Other Genitourinary History: chronic hematuria since childhood Musculoskeletal History: Reports: None Neurological History: Reports: None Psychiatric History: Reports: None Endocrine/Metabolic History: Reports: Obesity/BMI 30+ Hematologic History: Reports: None Immunologic History: Reports: None Oncologic (Cancer) History: Reports: None Dermatologic History: Reports: None - Infectious Disease History Infectious Disease History: Reports: Chicken Pox - Past Surgical History Head Surgeries/Procedures: Reports: None HEENT Surgical History: Reports: Adenoidectomy, Oral Surgery, Tonsillectomy Other HEENT Surgeries/Procedures: "Jaw wired shut", "plastic surgery to face" GI Surgical History: Reports: Appendectomy, Hernia, Abdominal Social & Family History - Family History Family Medical History: Noncontributory - Tobacco Use Smoking Status *Q: Current Every Day Smoker Years of Tobacco use: 17 Packs/Tins Daily: 1 - Caffeine Use Caffeine Use: Reports: Coffee, Energy Drinks - Recreational Drug Use Recreational Drug Use: No ED ROS ENT - Review of Systems Review Of Systems: See Below (See HPI) ED EXAM, ENT - Physical Exam Exam: See Below (See HPI) Course - Vital Signs Text/Narrative:: Left ear cerumen impaction. Attempted to remove with loop/scoop, however patient not able to tolerate any object in the ear. Last Recorded V/S: Last Vital Signs Temp 96.6 F L 10/14/19 12:51 Pulse 90 10/14/19 12:51 Resp 16 10/14/19 12:51 BP 129/79 10/14/19 12:51 Pulse Ox 97 10/14/19 12:51 - Orders/Labs/Meds Meds: Medications Discontinued Medications Generic Name Dose Route Start Last Admin Trade Name Isreal PRN Reason Stop Dose Admin Docusate Sodium 50 mg 10/14/19 13:11 10/14/19 13:35 Colace 50 Mg/5 Ml Liquid PO 10/14/19 13:12 50 mg ONETIME ONE Administration - Re-Assessments/Exams Free Text/Narrative Re-Assessment/Exam: 10/14/19 14:38 Left ear irrigated well by Dali, patient's nurse with warm water. Patient tolerated well. Large mount of cerumen removed. TM reevaluated with no perforation or signs of infection. Stable for discharge. Departure - Departure Time of Disposition: 14:38 Disposition: Home, Self-Care 01 Clinical Impression: Cerumen impaction Qualifiers: Laterality: left Qualified Code(s): H61.22 - Impacted cerumen, left ear - Discharge Information Instructions: Earwax Buildup, Adult, Ear Drops, Adult, [id number], Ear Irrigation, Ear Foreign Body, [id number], Ear Drops, Adult Referrals: PCP,None [Primary Care Provider] - Forms: ED Department Discharge Additional Instructions: If you develop any pain or difficulty hearing or high fevers or worsening symptoms, please return to the emergency department. Otherwise please follow-up with your primary care physician for ongoing routine medical care. The following information is given to patients seen in the emergency department who are being discharged to home. This information is to outline your options for follow-up care. We provide all patients seen in our emergency department with a follow-up referral. The need for follow-up, as well as the timing and circumstances, are variable depending upon the specifics of your emergency department visit. If you don't have a primary care physician on staff, we will provide you with a referral. We always advise you to contact your personal physician following an emergency department visit to inform them of the circumstance of the visit and for follow-up with them and/or the need for any referrals to a consulting specialist. The emergency department will also refer you to a specialist when appropriate. This referral assures that you have the opportunity for follow-up care with a specialist. All of these measure are taken in an effort to provide you with optimal care, which includes your follow-up. Under all circumstances we always encourage you to contact your private physician who remains a resource for coordinating your care. When calling for follow-up care, please make the office aware that this follow-up is from your recent emergency room visit. If for any reason you are refused follow-up, please contact the Emergency Department at and asked to speak to the emergency department charge nurse. [facility] - [facility] [address] [place] [id number] [id number] Sepsis Event Note (ED) - Evaluation Sepsis Screening Result: No Definite Risk - Focused Exam Vital Signs: Vital Signs Temp Pulse Resp BP Pulse Ox 10/14/19 12:51 96.6 F L 90 16 129/79 97
== END 2019-10-14 14:50 | disposition home or self-care (01) ==
LOC: MW.ED 12:42
DX: H61.22 Impacted cerumen, left ear (principal); E66.9 Obesity, unspecified; F17.210 Nicotine dependence, cigarettes, uncomplicated; Z68.36 Body mass index [BMI] 36.0-36.9, adult; Z88.1 Allergy status to other antibiotic agents; Z88.8 Allergy status to other drugs, medicaments and biological substances; Z79.899 Other long term (current) drug therapy
CPT/HCPCS: 99282; A9270-GY